=== PATIENT | female | born 1955 | race Two or more races ===

== ENCOUNTER 2021-05-07 06:50 | Day surgery (SDC) | payer OTHER ==
[~2021-05-07 06:50] MED LIST: COZAAR50 MG PO; CRESTOR5 MG PO; NEURONTIN800 MG PO
== END 2021-05-07 20:30 | disposition home or self-care (01) ==
LOC: CIR.AMB 06:50
PROVIDERS: ATTEND Surgery
DX: C50.412 Malignant neoplasm of upper-outer quadrant of left female breast (principal); N65.1 Disproportion of reconstructed breast; C77.3 Secondary and unspecified malignant neoplasm of axilla and upper limb lymph nodes; Z20.822 Contact with and (suspected) exposure to COVID-19